=== PATIENT | male | born 1945 | race Caucasian/White ===

== ENCOUNTER 2023-01-28 16:24 | Emergency (ER) | payer MEDICARE, OTHER, SELFPAY ==
--- NOTE | ~2023-01-28 | XR_ITS ---
EXAMINATION: XR CHEST CLINICAL INFORMATION: Chest pain COMPARISON: None available. TECHNIQUE: 2 views of the chest were obtained. FINDINGS: The cardiac and mediastinal contours are normal. Lungs are clear. No pleural effusion or pneumothorax. Degenerative changes of the spine. XR/XR chest 2V IMPRESSION: Unremarkable examination.
--- NOTE | 2023-01-28 16:27 | ECG_ITS ---
Test Reason : CP Blood Pressure : / mmHG Vent. Rate : 063 BPM Atrial Rate : 063 BPM P-R Int : 194 ms QRS Dur : 112 ms QT Int : 420 ms P-R-T Axes : 056 020 067 degrees QTc Int : 429 ms Normal sinus rhythm ST elevation in Inferior leads Abnormal ECG No previous ECGs available Referred By: Christy Ahumada Electronically Signed By:YULISSA BENJAMIN MD
[2023-01-28 16:28] VITALS: BP 136/91; PULSE 68; RESP 20; TEMP 36.2; O2SAT 95; BMI 27.2
--- NOTE | 2023-01-28 16:29 | ED.CHESTPAIN ---
HPI - Chest Pain General Chief Complaint: Chest Pain Stated Complaint: Chest pian Time Seen by Provider: 01/28/23 21:15 Source: patient and family Mode of arrival: ambulatory Limitations: no limitations History of Present Illness HPI narrative: 77 yo male with PMH of HTN no known cardiac history has had 3 episodes in the past of chest pain but no real associated symptoms that he has had worked up in the past in [place] without findings. Yesterday arjun mei had chest tightness and some slight nausea - but no dyspnea and no sweats. He has had this in the past. He has had no pain all day and nothing related to exertion. He talked to his PCP who advised him to get checked out. The episode lasted 1 hour. MD complaint: chest pain Onset (ago): day(s) (1) Timing of current episode: now resolved Prior episodes: Yes Onset: during rest Pain location: substernal Pain radiation: none Severity: mild Quality: tightness Relieving factors: nothing Exacerbating factors: nothing Associated symptoms: nausea Treatment prior to arrival: none Related Data Allergies Allergy/AdvReac Type Severity Reaction Status Date / Time No Known Allergies Allergy Verified 01/28/23 16:32 Review of Systems Review of Systems: Constitutional : No Weight loss, No Fever, No Chills ENT/Mouth : No sore throat, No Rhinorrhea Eyes: No Eye Pain, No Swelling Cardiovascular : pos Chest Pain, no SOB, no Dyspnea on Exertion, No Orthopnea, No Edema, No Palpitations Respiratory : No Cough, No Sputum Gastrointestinal : pos Nausea, No Vomiting, No Diarrhea, No abdominal Pain, No Hematochezia, No Melena Genitourinary : No Dysuria, No Urinary Frequency Musculoskeletal : No joint pain, No Myalgias, No Joint Swelling Skin : No Skin Lesions, No rash Neuro : No Weakness, No Numbness, No Dizziness, No Headache Psych : No Anxiety/Panic, No Depression All other systems reviewed and are negative [facility] Past Medical History Attestation statement: The following information was validated with the patient. Medical History (Updated 01/28/23 @ 21:45 by Berna Ross DO) HTN (hypertension) Social History Social History (Updated 01/28/23 @ 21:43 by Berna Ross DO) Patient Tobacco Use Status: Tobacco use Unknown Advance Directives: No Advance Directives Information Provided: No Physical Exam Vital Signs: Vital Signs: Last Vital Signs Temp 98.1 F 01/28/23 21:38 Pulse 55 01/28/23 21:38 Resp 15 01/28/23 21:38 BP 138/86 01/28/23 21:38 Pulse Ox 97 01/28/23 21:38 O2 Del Method Room Air 01/28/23 21:38 BMI result Body Mass Index 27.2 Appearance: Alert. Oriented X3. No acute distress. Eyes: Pupils equal, round and reactive to light. ENT: Pharynx normal. Neck: Normal inspection. Neck supple. CVS: Normal heart rate and rhythm. Pulses normal. Respiratory: No respiratory distress. Breath sounds normal. Abdomen: Soft and nontender. femoral pulses intact Skin: Skin warm and dry. Normal skin color. Normal skin turgor. Extremities: No lower extremity edema. No calf ttp Neuro: Oriented X 3. No motor deficit. No sensory deficit. Course Course Course Narrative: This is an RME: Additional HPI, ROS, PE not included below will be deferred to primary provider. This is a [id number], history of hyperlipidemia, anxiety and thyroid disease, presenting to the emergency department with a compaint of chest pain. Pt states that yesterday, he developed a tight, chest like pain which lasted for 45 minutes and resolved on its own. He states that he had a similar chest pain 5 years ago and then 1 year ago. Was seen in [place], had cardiac work up with no findings. Patient does not have any chest pain at this time. Has not had any other episodes of chest pain since this incidence yesterday. Plan: Labs, EKG, chest x-ray, further ER evaluation needed. Medical Decision Making Medical Decision Making [facility] Narrative: 77 yo male with PMH of HTN here with c/o resolved chest pain that he has had before in the past with negative work up he is not toxic no signs of DVT or hypoxia/tachycardia. He has no pain now and distal pulses intact doubt dissection - at this time will obtain EKG, CXR and troponin - if negative will follow up with PCP for stress test. He has no exertional symptoms and has had this in the past with negative workup Differential Diagnosis Differential Diagnoses: The differential diagnosis associated with the presentation includes esophageal spasm, atypical chest pain, atypical ACS doubt VTE - no hypoxia, not pleuritic, no signs of DVT distal pulses intact doubt dissection and pain has resovled Admission/Observation Consideration of admission/observation: Escalation of care including admission/observation considered 24 hours ago no pain and EKG and trop negative Lab Data MDM Lab Attestation statement: I reviewed the patient's lab results. 01/28/23 16:53 01/28/23 16:53 Labs: Lab Results 01/28/23 Range/Units 16:53 WBC 4.5 L (4.8-10.8) X10*3/uL RBC 5.37 (4.60-5.80) X10*6/uL Hgb 16.6 (14.0-18.0) g/dl Hct 46.6 (42.0-52.0) % MCV 86.8 (80.0-98.0) fL MCH 30.9 (27.0-33.0) pg MCHC 35.6 (31.0-36.0) g/dl RDW 13.1 (11.0-16.0) % Plt Count 94 L (160-400) X10*3/uL MPV 10.2 (9.4-12.4) fL Immature Gran % (Auto) 0.2 (0.0-0.4) % Neut % (Auto) 53.9 (45-73) % Lymph % (Auto) 29.1 (20-40) % [place] % (Auto) 12.6 H (2-11) % Eos % (Auto) 3.5 (0-4) % Baso % (Auto) 0.7 (0-2) % Lymph # (Auto) 1.3 (1.2-4.9) X10*3/uL [place] # (Auto) 0.6 (0.1-1.2) X10*3/uL Eos # (Auto) 0.2 (0.0-0.4) X10*3/uL Baso # (Auto) 0.0 (0.0-0.2) X10*3/uL Abs Immat Gran (auto) 0.01 (0.00-0.03) X10*3/uL Absolute Neuts (auto) 2.5 (2.0-8.3) x10*3/uL Absolute Nucleated RBC 0.000 (0.0-0.012) X10*3/uL Nucleated RBC % (auto) 0.0 (0.0-0.2) /100WBC Sodium 140 (135-145) mmol/L Potassium 4.7 (3.3-5.1) mmol/L Chloride 110 H (96-108) mmol/L Carbon Dioxide 22 (22-29) mmol/L Anion Gap 13 (12-20) BUN 17 H (9-16) mg/dL Creatinine 0.89 (0.5-1.4) mg/dL Estim Creat Clear Calc 76.3 Estimated GFR > 60 Random Glucose 87 (60-115) mg/dL Calcium 9.5 (8.4-10.2) mg/dL Total Bilirubin 0.8 (0.0-1.0) mg/dL Direct Bilirubin 0.2 (0.0-0.5) mg/dL AST 20 (5-37) U/L ALT 15 (0-40) U/L Alkaline Phosphatase 65 (39-117) U/L Troponin I High Sens < 2.7 (<3.5-35.0) ng/L Total Protein 6.9 (6.5-8.0) g/dL Albumin 4.1 (3.5-5.0) g/dL Independent Interpretation I performed an independent interpretation of an: EKG and Plain X-Ray (normal ) Interpretation: Rate: 54 Rhythm: sinus bradycardia with 1st degree AVB [place]: normal Normal P waves. Normal [place]. Normal QRS complex. ST T wave : no MELISSA, no change from prior qTC: normal prior studies: no acute change The study has been interpreted contemporaneously by me. . Radiology Impression Discussion of test interpretation with radiology: I have reviewed the radiologist's reading. Independent Historian Clinical information obtained from an independent historian. History obtained from or confirmed by: Spouse Discharge Plan Discharge Clinical Impression: Atypical chest pain Patient Disposition: Home, Self-Care Instructions: Chest Pain (ED) Additional Instructions: return for worsening symptoms - dizziness, pain, shortness of breath or any other concerns. your chest xray and heart blood tests were normal. please get a stress test - talk to your doctor tomorrow as discussed avoid exertional activities until you talk to your doctor
[2023-01-28 16:57] LABS: MANUAL DIFF FLAG NO
[2023-01-28 17:01] LABS: Basophils Percent Auto 0.7 % (0-2); Eosinophils Absolute Auto 0.2 X10*3/uL (0.0-0.4); Eosinophils Percent Auto 3.5 % (0-4); Hematocrit 46.6 % (42.0-52.0); Hemoglobin 16.6 g/dl (14.0-18.0); Imm Gran Abs Auto 0.01 X10*3/uL (0.00-0.03); Imm Gran Pct Auto 0.2 % (0.0-0.4); Lymphocytes Absolute Auto 1.3 X10*3/uL (1.2-4.9); Lymphocytes Percent Auto 29.1 % (20-40); Mean Corpuscular HGB Conc 35.6 g/dl (31.0-36.0); Mean Corpuscular Hemoglobin 30.9 pg (27.0-33.0); Mean Corpuscular Volume 86.8 fL (80.0-98.0); Monocytes Absolute Auto 0.6 X10*3/uL (0.1-1.2); Monocytes Percent Auto 12.6 % (2-11); Neutrophils Absolute Auto 2.5 x10*3/uL (2.0-8.3); Neutrophils Percent Auto 53.9 % (45-73); Red Blood Count 5.37 X10*6/uL (4.60-5.80); Red Cell Distribution Width 13.1 % (11.0-16.0); White Blood Count 4.5 X10*3/uL (4.8-10.8)
[2023-01-28 17:17] LABS: Alanine Aminotransferase 15 U/L (0-40); Albumin Level 4.1 g/dL (3.5-5.0); Alkaline Phosphatase 65 U/L (39-117); Anion Gap 13 (12-20); Aspartate Amino Transferase 20 U/L (5-37); Bilirubin Direct 0.2 mg/dL (0.0-0.5); Bilirubin Total 0.8 mg/dL (0.0-1.0); Blood Urea Nitrogen 17 mg/dL (9-16); Calcium 9.5 mg/dL (8.4-10.2); Carbon Dioxide 22 mmol/L (22-29); Chloride 110 mmol/L (96-108); Creatinine Clr Calc Pharmacy 76.3; Estimated Glomerular Filt Rate > 60; Glucose Random 87 mg/dL (60-115); Potassium 4.7 mmol/L (3.3-5.1); Sodium 140 mmol/L (135-145); Total Protein 6.9 g/dL (6.5-8.0)
[2023-01-28 17:22] LABS: Troponin-I High Sensitivity < 2.7 ng/L (<3.5-35.0)
[2023-01-28 17:39] LABS: Mean Platelet Volume 10.2 fL (9.4-12.4); Platelet Count 94 X10*3/uL (160-400)
[2023-01-28 20:31] VITALS: BP 135/78; PULSE 63; RESP 17; TEMP 36.6; O2SAT 96
--- NOTE | 2023-01-28 21:24 | ECG_ITS ---
Test Reason : [employer] Blood Pressure : / mmHG Vent. Rate : 054 BPM Atrial Rate : 054 BPM P-R Int : 202 ms QRS Dur : 114 ms QT Int : 452 ms P-R-T Axes : 059 019 067 degrees QTc Int : [address] more elevated in Inferior leads Possible Inferior infarct Abnormal ECG When compared with ECG of 28-JAN-2023 16:45, ST more elevated in Inferior leads Clinical Correlation Advised Referred By: Berna Ross Electronically Signed By:YULISSA BENJAMIN MD
[2023-01-28 21:38] VITALS: BP 138/86; PULSE 55; RESP 15; TEMP 36.7; O2SAT 97
== END 2023-01-28 22:20 | disposition home or self-care (01) ==
PROVIDERS: Physician Assistant Medical; Emergency Provider Emergency Medicine
DX: R07.89 Other chest pain (principal); R00.1 Bradycardia, unspecified; Z79.899 Other long term (current) drug therapy
CPT/HCPCS: 36415; 71046; 80048; 80076; 84484; 85025; 93005; 99283; 99284